=== PATIENT | male | born 1945 | race African-American/Black ===

== ENCOUNTER 2016-06-23 20:38 | Emergency (ER) | payer OTHER ==
[~2016-06-23] VITALS: Ht 180.3 cm; Wt 97.5 kg
--- NOTE | ~2016-06-23 | EKG ---
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 : 1945 Requested By: Dane Edwards Order Number: [id number] MD: Vishal Lux Measurements Intervals [place] Rate: 72 P: 28 OK: 252 QRS: -21 QRSD: 91 T: 94 QT: 382 QTc: 419 Interpretive Statements Sinus rhythm Atrial premature complex Prolonged OK interval Borderline left axis deviation Nonspecific T abnormalities, lateral leads Compared to ECG 05/03/2015 13:41:50 no significant changes Electronically Signed On 06-24-2016 9:04:22 CDT by Vishal Lux [email or web address] <ELECTRONICALLY SIGNED> By: Vishal Lux MD, [facility] 06/24/16 0904 44 44 Vishal Lux MD, [facility] /EPI
[~2016-06-23 20:38] MED LIST: ANTIVERT25 M1 PO; ASPIR 8181 MG PO; COZAAR 25 MG TA25 M1 PO; GLUCOTROL5 MG PO; LEVEMIR SUBQ; METFORMIN HCL500 MG PO; ZOFRAN ODT4 M1 PO
[2016-06-23 21:23] LABS: ABSOLUTE NEUTROPHILS 2.6 thou/uL (1.4-8.2); BASOPHILS 1.2 % (0.0-2.0); EOSINOPHILS 4.2 % (0.0-3.0); HEMATOCRIT 38.4 % (42.0-52.0); HEMOGLOBIN 13.2 gm/dL (14.0-18.0); LYMPHOCYTES 42.9 % (24.0-44.0); MCH 27.2 pg (26.0-34.0); MCHC 34.5 g/dL (28.0-37.0); MONOCYTES 7.8 % (1.0-8.0); PLATELET COUNT 216 thou/uL (150-400); POLYS 43.9 % (36.0-66.0); RBC 4.86 mil/uL (4.50-6.00); WBC 5.9 thou/uL (4.0-11.0)
[2016-06-23 21:26] LABS: MANUAL DIFF NO
[2016-06-23 21:31] LABS: ANION GAP 7 mmol/L (7-16); BUN 19 mg/dL (7-18); CALCIUM 8.8 mg/dL (8.5-10.1); CHLORIDE 103 mmol/L (98-107); CO2 27 mmol/L (21-32); CREATININE 1.2 mg/dL (0.7-1.3); GLUCOSE 130 mg/dL (74-106); POTASSIUM 4.4 mmol/L (3.5-5.1); SODIUM 137 mmol/L (136-145)
[2016-06-23 21:38] LABS: ALBUMIN 3.6 g/dL (3.4-5.0); ALKALINE PHOSPHATASE 90 U/L (46-116); MAGNESIUM 1.6 mg/dL (1.8-2.4); SGOT 36 U/L (15-37); SGPT 50 U/L (30-65); TOTAL BILIRUBIN 0.6 mg/dL (<0.1-1.0); TOTAL PROTEIN 7.5 g/dL (6.4-8.2); TROPONIN-I < 0.04 ng/mL (<0.04-0.07)
[2016-06-23] MEDS ORDERED: ONDANSETRON HCL4 M2 PO (22:03)
[2016-06-23 22:26] LABS: URINE BILIRUBIN NEGATIVE (Negative); URINE BLOOD NEGATIVE (Negative); URINE COLOR YELLOW; URINE GLUCOSE-RANDOM* TRACE (Negative); URINE KETONES NEGATIVE (Negative); URINE LEUKOCYTES-REFLEX NEGATIVE (Negative); URINE PROTEIN (DIPSTICK) TRACE (Negative); URINE UROBILINOGEN 0.2 E.U./dl (0.2-1.0)
[2016-06-23 22:58] VITALS: BP 155/64
== END 2016-06-23 23:27 | disposition home or self-care (01) ==
LOC: ER 20:38
PROVIDERS: Emergency Medicine
DX: I95.1 Orthostatic hypotension (principal); I10 Essential (primary) hypertension; E11.9 Type 2 diabetes mellitus without complications; Z88.8 Allergy status to other drugs, medicaments and biological substances

== ENCOUNTER 2016-09-16 11:51 | Emergency (ER) | payer OTHER ==
[~2016-09-16] VITALS: Ht 180.3 cm; Wt 97.5 kg
--- NOTE | ~2016-09-16 | EKG ---
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
[~2016-09-16 11:51] MED LIST changes: +ONDANSETRON HCL4 M2 PO
[2016-09-16 13:23] LABS: EOSINOPHILS 4.3 % (0.0-3.0); HEMATOCRIT 38.1 % (42.0-52.0); LYMPHOCYTES 34.8 % (24.0-44.0); MCH 27.8 pg (26.0-34.0); MCV 81.8 fL (80.0-100.0); MONOCYTES 8.9 % (1.0-8.0); PLATELET COUNT 208 thou/uL (150-400); RBC 4.66 mil/uL (4.50-6.00); RDW 14.9 % (10.5-14.5); WBC 5.8 thou/uL (4.0-11.0)
[2016-09-16 13:24] LABS: MANUAL DIFF NO
[2016-09-16 13:30] LABS: ANION GAP 6 mmol/L (7-16); BUN 17 mg/dL (7-18); CHLORIDE 103 mmol/L (98-107); CO2 26 mmol/L (21-32); CREATININE 1.3 mg/dL (0.7-1.3); GLUCOSE 263 mg/dL (74-106); POTASSIUM 5.4 mmol/L (3.5-5.1); SODIUM 135 mmol/L (136-145)
[2016-09-16 13:40] LABS: ALBUMIN 3.2 g/dL (3.4-5.0); ALKALINE PHOSPHATASE 95 U/L (46-116); SGOT 27 U/L (15-37); SGPT 39 U/L (30-65); TOTAL BILIRUBIN 0.7 mg/dL (<0.1-1.0); TOTAL PROTEIN 6.9 g/dL (6.4-8.2); TROPONIN-I < 0.04 ng/mL (<0.04-0.07)
[2016-09-16 15:48] VITALS: BP 111/73
== END 2016-09-16 15:36 | disposition home or self-care (01) ==
LOC: ER 11:51
PROVIDERS: Emergency Medicine
DX: E11.65 Type 2 diabetes mellitus with hyperglycemia (principal); E87.5 Hyperkalemia; I10 Essential (primary) hypertension; Z79.4 Long term (current) use of insulin; Z87.891 Personal history of nicotine dependence; Z79.82 Long term (current) use of aspirin; Z88.8 Allergy status to other drugs, medicaments and biological substances